=== PATIENT | male | born 1940 | race Caucasian/White ===

== ENCOUNTER 2025-03-20 12:02 | Emergency (ER) | payer MEDICARE, SELFPAY ==
[2025-03-20 12:15] VITALS: BP 105/67; PULSE 66; RESP 16; TEMP 37; O2SAT 100
--- NOTE | 2025-03-20 12:40 | ED.EYEPROB ---
HPI - Eye Problem General Chief complaint: Eye Problems Stated complaint: Eye Pain Time Seen by Provider: 03/20/25 12:40 Source: patient Mode of arrival: ambulatory Limitations: no limitations History of Present Illness HPI Narrative: 84-year-old male presents with daughter is with complaint redness and drainage from right eye. Woke up with redness this morning. Patient has history of dementia. Sometimes forgets to take out his contacts. Patient denies trauma. No pain or vision changes. All systems reviewed and negative except as noted above. Related Data Allergies Allergy/AdvReac Type Severity Reaction Status Date / Time No Known Allergies Allergy Verified 03/20/25 12:26 PMFSH Comments At time of signature, agree with nursing past medical, surgical, social and family history. There is no relevant family history pertinent to the presenting complaint. Exam Narrative: GENERAL: This is a well-nourished, well-developed patient, in no apparent distress. HEAD: normocephalic, atraumatic. EYES: PERRL. Sclera and conjunctiva to right eye erythematous. Some mild soft tissue swelling. Purulent drainage. Left eye is normal. Contact was left in right eye. Removed and thrown away. Topical anesthetic was instilled with good anesthesia using 1gtt of opth anesthetic agent (tetracaine). Fluorescein stain of the R eye was performed without uptake of dye. No epithelial defect was noted. NO FB. Upper lid was everted and no FB or lesions were noted. Normal saline irrigation eye solution was performed and the patient tolerated the procedure well, no adverse reaction or complications. EARS: External ears normal, auditory canals clear and without drainage, TMs normal without perforation. Hearing grossly intact. NOSE: External nose normal with no obvious nasal discharge, nares without redness, no rhinorrhea. THROAT: Mucous membranes moist, posterior pharynx clear. NECK: Neck supple, non-tender without lymphadenopathy, masses or thyromegaly. CARDIOVASCULAR: Regular rate and rhythm without murmurs, gallops, or rubs. RESPIRATORY: Clear to auscultation. Breath sounds equal bilaterally. No wheezes, rales, or rhonchi. SKIN: warm, Dry, intact with no suspicious lesions or rash, good texture and turgor. NEURO: awake, alert, and oriented to person, place and time. There were no obvious focal neurologic abnormalities. EXTREMITIES: No joint tenderness, effusion, or edema noted. Course Course Level of Care: Express Care Visit Vital Signs Vital signs: Vital Signs Temperature 37.0 C 03/20/25 12:15 Pulse Rate 66 03/20/25 12:15 Respiratory Rate 16 03/20/25 12:15 Blood Pressure 105/67 03/20/25 12:15 Pulse Oximetry 100 03/20/25 12:15 Oxygen Delivery Room Air 03/20/25 12:15 Temperature 37.0 C 03/20/25 12:15 Pulse Rate 66 03/20/25 12:15 Respiratory Rate 16 03/20/25 12:15 Blood Pressure 105/67 03/20/25 12:15 Pulse Oximetry 100 03/20/25 12:15 Oxygen Delivery Room Air 03/20/25 12:15 Reviewed MDM - Eye Problem MDM Narrative Medical decision making narrative: No corneal abrasion or dendritic lesions noted to right eye on exam with fluorescein. Due to significant erythema, purulent drainage will treat for bacterial conjunctivitis. Educated patient's daughters to not replace contacts until all symptoms have resolved. Will go to his capital markets specialist if not improving. Differential Diagnosis Differential diagnosis: Likely corneal abrasion, conjunctivitis, corneal ulcer and other (Keratitis) Discharge Plan Discharge Clinical Impression: Acute bacterial conjunctivitis of right eye Patient Disposition: Home Condition: Stable Instructions: Antibiotic Form, Conjunctivitis (ED) Additional Instructions: Place antibiotic eye drops as prescribed. Avoid placing new contacts until all symptoms have resolved. Follow up with capital markets specialist if not improving. For any pain or vision changes go to the ER. Patient Language: Greenlandic Prescriptions: New ofloxacin 0.3 % drops See Rx Instructions .ROUTE .COMPLEX Qty: 10 0RF Rx Instructions: put 1-2 drps into affected eye(s) every 2-4 h x 2 days, then 1-2 drps 4 times/day days 3-7 Follow-up/Referrals: PHYSICIAN,[facility]NER [Primary Care Provider, Internal Medicine] Time of Disposition: 12:57
[2025-03-20] MEDS: TETRACAINE HCL 0.5% OPHTH SOLN 4 ML BTL RIGHT EYE (12:47)
[2025-03-20] MEDS: FLUORESCEIN SOD 1 MG/STRIP RIGHT EYE (12:47)
[2025-03-20] MEDS: DACRIOSE EYE IRRIGATION 118 ML BOTTLE RIGHT EYE (12:47)
== END 2025-03-20 13:04 | disposition home or self-care (01) ==
PROVIDERS: Emergency Provider Nurse Practitioner Family
DX: H10.31 Unspecified acute conjunctivitis, right eye (principal); F03.90 Unspecified dementia, unspecified severity, without behavioral disturbance, psychotic disturbance, mood disturbance, and anxiety
CPT/HCPCS: 99203; A9270; G0463